=== PATIENT | female | born 1940 | race Hispanic/Latino ===

== ENCOUNTER 2021-02-10 00:51 | Emergency (ER) | payer OTHER ==
[~2021-02-10] VITALS: Ht 157.5 cm; Wt 64.9 kg
[2021-02-10 01:17] VITALS: BP 165/64
[2021-02-10] MEDS ORDERED: LIDOCAINE 5% TOPICAL PATCH TP SCH (02:30)
[2021-02-10] MEDS ORDERED: KETOROLAC 30MG VIAL (30MG/ML) IV ONE (02:30)
[2021-02-10] MEDS ORDERED: HYDROCODONE/ACETAMINOPHEN 5/325 MG TAB PO ONE (02:30)
[2021-02-10] MEDS ORDERED: KETOROLAC 15MG/ML VIAL (15MG/ML) ONE ×2 (02:33→02:40)
[2021-02-10] MEDS ORDERED: HYDROCODONE/ACETAMINOPHEN 5/325 MG TAB ONE (02:33)
[2021-02-10] MEDS ORDERED: LIDOCAINE 5% TOPICAL PATCH TP ONE (02:33)
[2021-02-10] MEDS ORDERED: LIDOP TP (03:53)
[2021-02-10] MEDS ORDERED: ORPH-43 PO (03:53)
[2021-02-10] MEDS ORDERED: MELO7.5T12 PO (03:53)
[2021-02-10 04:06] VITALS: BP 144/64
== END 2021-02-10 04:08 | disposition home or self-care (01) ==
LOC: EDH 00:51
DX: M54.5 Low back pain (principal); M62.838 Other muscle spasm; E03.9 Hypothyroidism, unspecified; Z79.899 Other long term (current) drug therapy; Z98.890 Other specified postprocedural states
CPT/HCPCS: 73502; 96374; 99283; J1885 ×2; 96372

== ENCOUNTER → 2022-02-17 | Outpatient (CLI) | payer OTHER ==
[~2022-02-17] MED LIST: AMLO-257 PO; ASCO100031 PO; CALC-1038 PO; CYAN-35 PO; DIPH-706 PO; ELDERBERRY PO; FLAX1CAP3 PO; LEVO25CA4 PO; MAGN250T10 PO; METO-408 PO; MV-M1TAB45 PO; RALO60TA13 PO; TURMERIC PO; VITAMIN D3 PO
== END | disposition home or self-care (01) ==
LOC: RAH 07:55
PROVIDERS: ATTEND Internal Medicine
DX: R18.8 Other ascites (principal); K74.60 Unspecified cirrhosis of liver; R79.89 Other specified abnormal findings of blood chemistry; Z90.49 Acquired absence of other specified parts of digestive tract; K76.89 Other specified diseases of liver
CPT/HCPCS: 76705

== ENCOUNTER → 2023-06-28 | Outpatient (CLI) | payer OTHER ==
[~2023-06-28] MED LIST changes: +IOHEXOL-350 75 ML VIAL IV ONE
== END | disposition home or self-care (01) ==
LOC: RAH 12:45
PROVIDERS: ATTEND Internal Medicine
DX: J90 Pleural effusion, not elsewhere classified (principal); R93.89 Abnormal findings on diagnostic imaging of other specified body structures; J98.11 Atelectasis; R18.8 Other ascites; R16.1 Splenomegaly, not elsewhere classified; K76.89 Other specified diseases of liver
CPT/HCPCS: 71260; Q9967

== ENCOUNTER 2023-08-31 13:00 | Inpatient (IN) | payer OTHER ==
[~2023-08-31] VITALS: Ht 157.5 cm; Wt 44.6 kg
[~2023-08-31 13:00] MED LIST changes: -IOHEXOL-350 75 ML VIAL IV ONE
[2023-08-31 15:53] LABS: BASOPHILS # (AUTO) 0.03 K/uL (0.00-0.20); BASOPHILS % (AUTO) 0.2 % (0.0-5.0); EOSINOPHILS # (AUTO) 0.09 K/uL (0.00-0.70); EOSINOPHILS % (AUTO) 0.7 % (0.0-8.0); HEMATOCRIT 36.8 % (36-48); IMMATURE GRANULOCYTE ABSOLUTE 0.07 K/uL (0-1); LYMPHOCYTES # (AUTO) 0.8 K/uL (1.0-4.8); LYMPHOCYTES % (AUTO) 6.5 % (21.0-51.0); MEAN CORPUSCULAR HEMOGLOBIN 33.7 pg (27.0-33.0); MEAN CORPUSCULAR HGB CONC 32.6 g/dL (32.0-36.0); MEAN CORPUSCULAR VOLUME 103.4 fL (79-99); MONOCYTES # (AUTO) 1.1 K/uL (0.1-1.0); MONOCYTES % (AUTO) 8.5 % (3.0-13.0); NEUTROPHILS # (AUTO) 10.8 K/uL (1.8-7.7); NEUTROPHILS % (AUTO) 83.6 % (40.0-77.0); PLATELET COUNT (AUTO) 154 K/uL (130-400); RED BLOOD CELL COUNT(AUTO) 3.56 MIL/uL (4.00-5.50); RED CELL DISTRIBUTION WIDTH 13.5 % (11.0-15.5)
[2023-08-31 16:02] LABS: CREATININE 1.4 mg/dL (0.5-1.5); POTASSIUM 4.3 mmol/L (3.5-5.1)
[2023-08-31 16:03] LABS: INR 0.95 (0.85-1.15); PROTHROMBIN TIME 11.1 SEC (9.6-11.6)
[2023-08-31 16:05] LABS: PARTIAL THROMBOPLASTIN TIME 28.3 SEC (26.3-35.5)
[2023-08-31 16:07] LABS: ALBUMIN 2.1 g/dL (3.5-5.0); BILIRUBIN,TOTAL 1.8 mg/dL (0.2-1.0); TOTAL PROTEIN, SERUM 7.5 g/dL (6.0-8.3)
[2023-08-31 18:47] LABS: ABG HCO3 20.7 mmol/L (21.0-28.0); ABG OXYGEN SATURATION 91.6 % (95.0-99.0); ABG PCO2 33 mmHg (32-45); ABG PH 7.415 (7.35-7.450); CARBON MONOXIDE 0.7; DEVICE COMMENT RIGHT RAD; HHb 8.3; PO2, ARTERIAL BG 60.8 mmHg (83.0-108.0); VENT MODE, BG ROOM AIR (ROOM AIR)
[2023-08-31 19:05] LABS: SARS-CoV-2, RNA, NAAT NEGATIVE SARS CoV-2 (NEGATIVE)
[2023-08-31 19:08] LABS: INFLUENZA TYPE A Negative For Type A (NEGATIVE); INFLUENZA TYPE B Negative For Type B (NEGATIVE)
[2023-08-31] MEDS ORDERED: LABETALOL 20MG SYG IV PRN (19:30)
[2023-08-31] MEDS ORDERED: LACTULOSE 20 GM/30 ML UDCUP PO PRN (19:30)
[2023-08-31] MEDS ORDERED: TEMAZEPAM 15 MG CAPSULE PO PRN (19:30)
[2023-08-31] MEDS ORDERED: ACETAMINOPHEN 650 MG SUPPOSITORY RC PRN (19:30)
[2023-08-31] MEDS ORDERED: HYDRALAZINE 20MG/ML VIAL IV PRN (19:30)
[2023-08-31] MEDS: ALBUTEROL 0.083% 2.5 MG/3 ML INH IH SCH ×2 (19:30→23:12)
[2023-08-31] MEDS ORDERED: ONDANSETRON 4MG INJ IVP PRN (19:30)
[2023-08-31] MEDS ORDERED: ACETAMINOPHEN 325 MG TAB PO PRN (19:30)
[2023-08-31] MEDS ORDERED: DOCUSATE SODIUM 100 MG CAP PO PRN (19:30)
[2023-08-31] MEDS: IPRATROPIUM/ALBUTEROL SULFATE 3 ML SOLUTION IH SCH ×2 (19:46→23:09)
[2023-08-31 19:47] VITALS: PULSE 87; RESP 20
[2023-08-31 19:48] VITALS: PULSE 85; RESP 20; O2SAT 98
[2023-08-31 19:49] VITALS: PULSE 87; RESP 20
[2023-08-31 19:54] VITALS: PULSE 85; RESP 20; O2SAT 98
[2023-08-31 20:00] VITALS: BP 140/58; PULSE 76; RESP 17; O2SAT 98
[2023-08-31] MEDS: INSULIN HUMULIN R 100 UNIT/ML 3ML SQ SCH (21:00)
[2023-08-31 23:10] VITALS: PULSE 81; RESP 22
[2023-09-01] VITALS (11 sets, daily range): BP systolic 123–149; BP diastolic 48–69; PULSE 75–104; RESP 16–24; O2SAT 96–98
[2023-09-01] MEDS: ALBUTEROL 0.083% 2.5 MG/3 ML INH IH SCH (06:00)
[2023-09-01] MEDS: INSULIN HUMULIN R 100 UNIT/ML 3ML SQ SCH ×4 (06:06→20:24)
[2023-09-01] MEDS: IPRATROPIUM/ALBUTEROL SULFATE 3 ML SOLUTION IH SCH ×4 (07:30→23:30)
[2023-09-01 07:54] LABS: BASOPHILS # (AUTO) 0.03 K/uL (0.00-0.20); BASOPHILS % (AUTO) 0.3 % (0.0-5.0); EOSINOPHILS # (AUTO) 0.18 K/uL (0.00-0.70); EOSINOPHILS % (AUTO) 1.7 % (0.0-8.0); HEMATOCRIT 32.9 % (36-48); IMMATURE GRANULOCYTE ABSOLUTE 0.04 K/uL (0-1); LYMPHOCYTES # (AUTO) 0.8 K/uL (1.0-4.8); LYMPHOCYTES % (AUTO) 7.6 % (21.0-51.0); MEAN CORPUSCULAR HEMOGLOBIN 33.8 pg (27.0-33.0); MEAN CORPUSCULAR HGB CONC 33.4 g/dL (32.0-36.0); MEAN CORPUSCULAR VOLUME 101.2 fL (79-99); MONOCYTES # (AUTO) 0.9 K/uL (0.1-1.0); MONOCYTES % (AUTO) 8.8 % (3.0-13.0); NEUTROPHILS # (AUTO) 8.5 K/uL (1.8-7.7); NEUTROPHILS % (AUTO) 81.2 % (40.0-77.0); PLATELET COUNT (AUTO) 156 K/uL (130-400); RED BLOOD CELL COUNT(AUTO) 3.25 MIL/uL (4.00-5.50); RED CELL DISTRIBUTION WIDTH 13.6 % (11.0-15.5); WHITE BLOOD COUNT (AUTO) 10.5 K/uL (4.8-10.8)
[2023-09-01 08:15] LABS: HEMOGLOBIN A1C 4.4 % (4.0-6.0)
[2023-09-01 08:27] LABS: ALBUMIN 1.9 g/dL (3.5-5.0); BILIRUBIN,TOTAL 1.7 mg/dL (0.2-1.0); CREATININE 1.2 mg/dL (0.5-1.5); MAGNESIUM 2.1 mg/dL (1.80-2.40); PHOSPHORUS 3.6 mg/dL (2.5-4.9); POTASSIUM 4.1 mmol/L (3.5-5.1); THYROID STIMULATING HORMONE 5.72 uIU/mL (0.36-3.74)
[2023-09-01] MEDS: FUROSEMIDE 40MG VIAL IV SCH (08:45)
[2023-09-01] MEDS ORDERED: ALBUMIN (HUMAN) 25% 200 ML IV SCH (11:10)
[2023-09-02] VITALS (15 sets, daily range): BP systolic 134–162; BP diastolic 59–73; PULSE 60–113; RESP 16–22; O2SAT 99
[2023-09-02] MEDS: INSULIN HUMULIN R 100 UNIT/ML 3ML SQ SCH (06:20)
[2023-09-02] MEDS: IPRATROPIUM/ALBUTEROL SULFATE 3 ML SOLUTION IH SCH ×2 (07:03→10:54)
[2023-09-02] MEDS: FUROSEMIDE 40MG VIAL IV SCH (09:29)
[2023-09-02 12:20] LABS: APPEARANCE BODY FLUID CLEAR (CLEAR); COLOR,BODY FLUID YELLOW (LT YELLOW); SPECIMENTYPE,BODY FLUID PLEURAL
[2023-09-02 12:21] LABS: TOTAL VOLUME,BODY FLUID 1500 mL
[2023-09-02 12:28] LABS: BODY FLUID RBC 1849 /cu. mm.; BODY FLUID WBC 112 /cu. mm.
[2023-09-02 12:44] LABS: BF EOSINOPHIL 1 %; BF LYMPHOCYTE 25 %; BF MESOTHELIAL 22 %; BF MONOCYTE 24 %; BF TOTAL CELLS COUNTED 100
== END 2023-09-02 14:00 | disposition home or self-care (01) | DRG 432 ==
LOC: EDH 13:00 → EDHIP 17:22 → OBSVTOIN 17:22 → 4DH 09-01 17:42
PROVIDERS: ADMIT Internal Medicine Pulmonary Disease; ATTEND Internal Medicine Pulmonary Disease
PROC: 0W9G3ZZ Drainage of Peritoneal Cavity, Percutaneous Approach (ICD-10-PCS; principal; 2023-09-01)
PROC: 0W993ZZ Drainage of Right Pleural Cavity, Percutaneous Approach (ICD-10-PCS; 2023-09-02)
DX: K74.60 Unspecified cirrhosis of liver (principal); J96.01 Acute respiratory failure with hypoxia; N17.0 Acute kidney failure with tubular necrosis; R18.8 Other ascites; J90 Pleural effusion, not elsewhere classified; E03.9 Hypothyroidism, unspecified; I34.1 Nonrheumatic mitral (valve) prolapse; Z20.822 Contact with and (suspected) exposure to COVID-19; E11.65 Type 2 diabetes mellitus with hyperglycemia; I10 Essential (primary) hypertension; Z90.710 Acquired absence of both cervix and uterus
CPT/HCPCS: 32555; 36415; 36600; 49083; 71045; 74176; 80053; 82140; 82435; 82803; 82947; 82948; 83036; 83605; 83735; 83880; 84100; 84132; 84295; 84443; 85018; 85025; 85610; 85730; 87071; 87205; 87635; 87804; 89051; 94640; 99291; C1729; G0378; J1940; P9046